=== PATIENT | female | born 1955 | race Caucasian/White ===

== ENCOUNTER → 2023-11-07 12:25 | Outpatient (REF) | payer BC, SELFPAY | LOC: RAD 12:25 | PROVIDERS: ATTENDING PHYSICIAN Family Medicine | DX: M25.551 Pain in right hip (principal); M54.41 Lumbago with sciatica, right side | CPT/HCPCS: 72110; 73502 ==

== ENCOUNTER → 2023-11-22 08:33 | Outpatient (REF) | payer BC, SELFPAY | LOC: RAD 08:33 | PROVIDERS: ATTENDING PHYSICIAN Family Medicine | DX: M85.89 Other specified disorders of bone density and structure, multiple sites (principal) | CPT/HCPCS: 77080 ==

== ENCOUNTER → 2024-07-27 18:28 | Outpatient (REF) | payer BC, SELFPAY | LOC: WDC 18:28 | PROVIDERS: ATTENDING PHYSICIAN Family Medicine | DX: Z12.31 Encounter for screening mammogram for malignant neoplasm of breast (principal) | CPT/HCPCS: 77063; 77067 ==

== ENCOUNTER 2025-05-10 06:32 | Day surgery (SDC) | payer BC, SELFPAY | END 2025-05-10 10:10 | disposition home or self-care (01) | LOC: GI 06:32 | PROVIDERS: ATTENDING PHYSICIAN Internal Medicine | DX: Z12.11 Encounter for screening for malignant neoplasm of colon (principal); K55.20 Angiodysplasia of colon without hemorrhage; Z86.0100 Personal history of colon polyps, unspecified; Z80.0 Family history of malignant neoplasm of digestive organs; K64.8 Other hemorrhoids | CPT/HCPCS: 45380; 88305 ==

== ENCOUNTER → 2025-06-15 11:04 | Outpatient (REF) | payer BC, SELFPAY | LOC: REG 11:04 | PROVIDERS: ATTENDING PHYSICIAN Nurse Practitioner Family; FAMILY PHYSICIAN Family Medicine | DX: M79.641 Pain in right hand (principal) | CPT/HCPCS: 72050; 73030; 73120 ==

== ENCOUNTER → 2025-07-28 18:25 | Outpatient (REF) | payer BC, SELFPAY | LOC: WDC 18:25 | PROVIDERS: ATTENDING PHYSICIAN Family Medicine | DX: Z12.31 Encounter for screening mammogram for malignant neoplasm of breast (principal) | CPT/HCPCS: 77063; 77067 ==